=== PATIENT | female | born 1980 | race Caucasian/White ===

== ENCOUNTER 2016-11-20 18:53 | Emergency (ER) | END 2016-11-20 19:17 | disposition left against medical advice (07) | DX: Z53.21 Procedure and treatment not carried out due to patient leaving prior to being seen by health care provider (principal) ==

== ENCOUNTER 2016-11-20 19:29 | Inpatient (IN) | payer MEDICAID ==
[~2016-11-20] VITALS: Ht 154.9 cm; Wt 79.7 kg
[2016-11-20 19:48] VITALS: Ht 154.9 cm; Wt 79.7 kg
[2016-11-20 19:49] VITALS: BP 149/86; PULSE 50; RESP 18
[2016-11-20] MEDS ORDERED: PREN1TAB62 PO (19:51)
[2016-11-20] MEDS ORDERED: CALC600T5 PO (19:51)
--- NOTE | 2016-11-20 21:20 | RADRPT ---
PROCEDURE: US OB. CLINICAL INDICATION: Elevated blood pressure. TECHNIQUE: Multiple transabdominal sonographic images of the pelvis were obtained. COMPARISON: Biophysical profile 11/20/2016. FINDINGS: There is a single live intrauterine in cephalic presentation with heart motion of 13 5 beats per minute. Amniotic fluid amount appears normal. The placenta is posteriorly located. Measurements were made in order to determine age. The results are as follows: BPD = 8.04 cm, 32 weeks 2 days HC = 28.46 cm, 31 weeks 2 days AC = 27.87 cm, 31 weeks 6 days FL = 6.05 cm, 31 weeks 3 days EFW: 1830 g, 4 pounds 1 ounce. Percentile by ultrasound: Less than 3. IMPRESSION: Single live intrauterine measuring 31 weeks 5 days using current ultrasound measurements w ith an estimated date of delivery of 01/17/2017. RPTAT: HLST .Suzy Carpenter MD, Date Time Electronically viewed and signed by .Suzy Carpenter MD, on 11/20/2016 21:19 .T/
--- NOTE | 2016-11-20 21:21 | RADRPT ---
PROCEDURE: OB ultrasound for Biophysical Profile. CLINICAL INDICATION: High blood pressure. TECHNIQUE: Multiple sonographic images of the gravid uterus were obtained. COMPARISON: OB ultrasound 11/20/2016. FINDINGS: There is a single live intrauterine in cephalic presentation with heart motion of 13 5 beats per minute. NEHA is 10.41 cm, which is within normal limits. Biophysical profile is as foll ows: Movement: 2 Tone:2 Breathin Fluid:2 IMPRESSION: Normal biophysical profile. RPTAT: HLST .Suzy Carpenter MD, MD Date Time Electronically viewed and signed by .Suzy Carpenter MD, on 11/20/2016 21:20 .T/
[2016-11-20] MEDS: LACTATED RINGER'S 1,000 ML IV SCH (21:24)
[2016-11-20 21:25] LABS: BASOPHILS % 0.5 % (0.0-2.0); EOSINOPHILS # 0.1 10^3/ul (0.0-0.5); EOSINOPHILS % 1.2 % (0.0-7.0); HEMATOCRIT 34.6 % (37.0-47.0); HEMOGLOBIN 11.7 g/dl (12.0-16.0); LYMPHOCYTES # 2.6 10^3/ul (0.8-2.9); LYMPHOCYTES % 31.1 % (15.0-51.0); MEAN CORPUSCULAR HEMOGLOBIN 28.7 pg (29.0-33.0); MEAN CORPUSCULAR HGB CONC 33.8 g/dl (32.0-37.0); MEAN CORPUSCULAR VOLUME 84.8 fl (82.0-101.0); MONOCYTE # 0.5 10^3/ul (0.3-0.9); MONOCYTES % 5.7 % (0.0-11.0); NEUTROPHIL # 5.1 10^3/ul (1.6-7.5); NEUTROPHILS % 61.5 % (39.0-77.0); PLATELET COUNT 145 10^3/UL (140-440); RED BLOOD COUNT 4.08 10^6/ul (4.20-5.40); RED CELL DISTRIBUTION WIDTH 15.3 % (11.5-14.5); UNCORRECTED WBC 8.3 10^3/ul (4.8-10.8); WHITE BLOOD COUNT 8.3 10^3/ul (4.8-10.8)
[2016-11-20 21:27] LABS: CONDITION 1; LH ANALYZER COMMENTS 1
[2016-11-20 21:27] LABS: ADD UMIC YES; URINE BILIRUBIN (Dip) NEGATIVE (NEGATIVE); URINE BLOOD (Dip) TRACE (NEGATIVE); URINE COLOR LT. YELLOW (YELLOW); URINE GLUCOSE (Dip) NEGATIVE (NEGATIVE); URINE KETONES (Dip) NEGATIVE (NEGATIVE); URINE LEUKOCYTE ESTERASE (Dip) NEGATIVE (NEGATIVE); URINE NITRITE (Dip) NEGATIVE (NEGATIVE); URINE TOTAL PROTEIN (Dip) 1+ (NEGATIVE); URINE UROBILINOGEN (Dip) 0.2 E.U./dL (0.1-1.0)
[2016-11-20 21:34] LABS: ALBUMIN 3.4 g/dl (3.3-4.9); POTASSIUM 4.1 mmol/L (3.5-5.1)
[2016-11-20 21:36] LABS: ALBUMIN/GLOBULIN RATIO 0.87; CREATININE 0.54 mg/dl (0.44-1.00); TOTAL PROTEIN 7.3 g/dl (6.1-8.1)
[2016-11-20 21:37] LABS: CALCIUM 9.3 mg/dl (8.4-10.2); URIC ACID 6.2 mg/dl (3.1-7.9)
[2016-11-20 21:41] LABS: BACTERIA,URINE FEW; SQUAMOUS EPITHELIAL CELL,UR FEW; URINE RBCS 0-2 /HPF (0)
--- NOTE | 2016-11-20 22:10 | HP ---
Date/Time of Note Date/Time of Note DATE: 11/20/16 TIME: 22:04 OB - History Hx of Present Chief Complaint: Shortness of breath Estimated Due Date: Dec 30, 2016 : 5 Para: 3 Spontaneous : 1 Therapeutic : 0 Care: Other ( records not available) Obstetrical Complications: None Medical Complications: None Past Family/Social History * Past Medical, Surgical, Family and Obstetric Histories reviewed from chart. OB Admission Exam Vital Signs Vital Signs Vital Signs Date Time Temp Pulse Resp B/P Pulse Ox O2 Delivery O2 Flow Rate FiO2 11/20/16 19:49 98.7 50 18 149/86 99 Room Air Physical Exam HEENT: WNL Heart: Rhythm Normal Lungs: Clear Abdomen: WNL Extremities: Normal Reflexes: Normal Last 72 hours Lab Results CBC & BMP 11/20/16 20:50 Liver Function Test 11/20/16 20:50 Alanine Aminotransferase (ALT/SGPT) 22 Albumin 3.4 Alkaline Phosphatase 220 H Aspartate Amino Transf (AST/SGOT) 21 Direct Bilirubin 0.00 Total Protein 7.3 OB Assessment/Plan Reason for admission: IUP - , other (R/O preeclampsia) Plan: Other (Admit, PIH panel, 24 hour urine collection) LOLLY SOTO MD Nov 20, 2016 22:10
--- NOTE | 2016-11-20 22:34 | TRIAGE ---
OB Triage Datetime Report Generated by CPN: 11/20/2016 22:33 Datetime: 11/20/2016 22:11 Labor Evaluation Frequency: 0 Monitor Mode: External Duration (sec)2399: 0 Pattern: Normal: <= 5 Contractions in 10 Minutes Resting Tone [place]: Relaxed Heart Rate FHR Baseline Rate: 140 Monitor Mode: External US Variability: Moderate 6-25 bpm Accelerations: None Decelerations: None Category: Category I Datetime: 11/20/2016 21:30 Comments: audible FHR between 88-90bpm lasting 3.5 minutes with a return to baseline at 134bpm. Datetime: 11/20/2016 21:00 Labor Evaluation Frequency: 0 Monitor Mode: External Duration (sec)2399: 0 Pattern: Normal: <= 5 Contractions in 10 Minutes Resting Tone [place]: Relaxed Contraction Comments: pt. denies feeling UC's or cramping. Heart Rate FHR Baseline Rate: 130 Monitor Mode: External US Variability: Moderate 6-25 bpm Accelerations: 15X15 Decelerations: None Category: Category I Datetime: 11/20/2016 20:10 Stage of : OB Triage Datetime: 11/20/2016 20:01 Stage of : OB Triage Labor Evaluation Frequency: 0 Monitor Mode: External Duration (sec)2399: 0 Pattern: Normal: <= 5 Contractions in 10 Minutes Resting Tone [place]: Relaxed Contraction Comments: pt. denies feeling UC's or cramping Heart Rate FHR Baseline Rate: 130 Monitor Mode: External US Variability: Moderate 6-25 bpm Accelerations: 15X15 Decelerations: None Category: Category I Pain Assessment Pain Scale: 8 Pain Presence: Constant Pain Type: Ache Pain Location: Back Pain Goal: 4 Pain Relief Measures: Comfort Measures Datetime: 11/20/2016 19:53 Vaginal Exam Membrane Status: Intact Datetime: 11/20/2016 19:47 Stage of : OB Triage Datetime: 11/20/2016 19:46 Stage of : OB Triage Assessment Type: Triage Maternal Assessment Level of Consciousness: Fully Conscious DTR's/Clonus: DTRs 2+; No Clonus Headache: Generalized Blurred Vision: No Respiratory Effort: Unlabored Nausea/Vomiting: Denies RUQ Epigastric Pain: Denies Lower Extremities Edema: None Degree: None Upper Extremities Edema: None Degree: None Facial Edema: None Fall Risk Assessment History of Falling: (0) No Secondary Diagnosis: (0) No Ambulatory Aid: (0) Bedrest/Nurse Assist IV Therapy: (0) No Gait: (0) Normal/Bedrest/Immobile Mental Status: (0) Oriented to Own Ability Fall Score: 0 Fall Risk Score Definition: No Risk: No action required Datetime: 11/20/2016 19:45 EGA: 34.2 Datetime: 11/20/2016 19:43 Time of Arrival: 11/20/2016 19:26 Arrived By: Wheelchair Arrived From: Emergency Dept Chief Complaint: upper baack pain, SOB, tachycardia Movement: Present Contractions: Denies/Absent Rupture of Membranes: Denies Vaginal Bleeding: None Vaginal Discharge: Denies Recent Sexual Intercouse: Denies Abdominal Trauma: Not Applicable Patient Complaints: Back Pain Time Provider Notified: 11/20/2016 20:10 Provider Notified: Jamar (Annotations: Data stored by CPN on behalf of user) Initial Plan: NST, CMP, CBC, URIC ACID, 24 hour urine, EFW, BPP Datetime: 11/20/2016 19:40 Stage of : OB Triage
[2016-11-20] MEDS: BETAMET NA PHOS/AC(6 MG/ML) 5ML INJ IM SCH (22:46)
[2016-11-21] MEDS ORDERED: MAGNESIUM SULFATE 4 GM/100 ML 100 ML IV ONE (01:00)
[2016-11-21] MEDS: MAGNESIUM SULFATE 20 GM/500 ML 500 ML IV SCH ×2 (01:52→13:33)
[2016-11-21] MEDS: LACTATED RINGER'S 1,000 ML IV SCH ×6 (06:09→22:22)
--- NOTE | 2016-11-21 20:21 | PN ---
Date/Time of Note Date/Time of Note DATE: 11/21/16 TIME: 20:18 OB Subjective Subjective Subjective no C/O headache, blurred vision, or epigastric pain OB Objective Objective Objective VSS P/E: NL on EFM FHTs R minimal D/C seen OB Assessment/Plan Other Assessment: doubt PIH 34+ weeks gestation Other plan: continue to observe D/C magnesiun sulfate JORGE LUIS GO MD Nov 21, 2016 20:21
[2016-11-21] MEDS: BETAMET NA PHOS/AC(6 MG/ML) 5ML INJ IM SCH (22:46)
[2016-11-22] MEDS: LACTATED RINGER'S 1,000 ML IV SCH ×6 (04:30→18:12)
[2016-11-22] MEDS ORDERED: OXYTOCIN 30 UNITS/LR 500 ML BAG IV ONE (07:00)
[2016-11-22] MEDS ORDERED: LACTATED RINGER'S 1,000 ML IV SCH (12:33)
--- NOTE | 2016-11-22 12:57 | CONS ---
DATE OF ADMISSION: 11/20/2016 DATE OF CONSULTATION: I spoke to Dr. Roldan, and Dr. Roldan mentioned his concern about the strip on patient mentioned abo ve. At my office I am able to look at the patient's strip, and overall the patient has been having mostly minimal variability and frequent spontaneous deceleration. She is currently 34 weeks and 4 d ays, and given the minimal variability and frequent spontaneous decelerations, delivery is recommend ed. Dictated By: KIKO MELARA/KYLEIGH Conf#: [id number] DID#: [id number]
[2016-11-22] MEDS ORDERED: CEFAZOLIN 2 GM/50 ML (PMX) 50 ML IV SCH ×2 (13:00→18:30)
[2016-11-22] MEDS ORDERED: OXYTOCIN 30 UNITS/LR 500 ML IV PRN ×2 (13:00→18:30)
[2016-11-22] MEDS ORDERED: CARBOPROST 250 MCG INJ IM PRN ×2 (13:00→18:30)
[2016-11-22] MEDS ORDERED: METHYLERGONOVINE 0.2 MG INJ IM PRN ×2 (13:00→18:30)
[2016-11-22] MEDS ORDERED: MISOPROSTOL 200 MCG TAB PR PRN ×2 (13:00→18:30)
[2016-11-22] MEDS ORDERED: OXYTOCIN 30 UNITS/LR 500 ML IV SCH (13:00)
[2016-11-22] MEDS ORDERED: ONDANSETRON 4 MG INJ IV STA (13:48)
[2016-11-22 13:53] LABS: HEMATOCRIT 36.4 % (37.0-47.0); LYMPHOCYTES # 1.6 10^3/ul (0.8-2.9); LYMPHOCYTES % 14.6 % (15.0-51.0); MONOCYTE # 0.6 10^3/ul (0.3-0.9); MONOCYTES % 5.5 % (0.0-11.0)
[2016-11-22 13:58] LABS: BASOPHILS % 0.2 % (0.0-2.0); HEMOGLOBIN 12.1 g/dl (12.0-16.0); MEAN CORPUSCULAR HEMOGLOBIN 28.5 pg (29.0-33.0); MEAN CORPUSCULAR HGB CONC 33.4 g/dl (32.0-37.0); MEAN CORPUSCULAR VOLUME 85.3 fl (82.0-101.0); MEAN PLATELET VOLUME 10.5 fl (7.4-10.4); NEUTROPHIL # 8.6 10^3/ul (1.6-7.5); NEUTROPHILS % 79.7 % (39.0-77.0); PLATELET COUNT 171 10^3/UL (140-440); RED BLOOD COUNT 4.27 10^6/ul (4.20-5.40); RED CELL DISTRIBUTION WIDTH 16.6 % (11.5-14.5); UNCORRECTED WBC 10.8 10^3/ul (4.8-10.8); WHITE BLOOD COUNT 10.8 10^3/ul (4.8-10.8)
[2016-11-22 13:59] LABS: CONDITION 1; LH ANALYZER COMMENTS 1
[2016-11-22] MEDS ORDERED: FAMOTIDINE 20 MG INJ IV ONE (14:00)
[2016-11-22] MEDS ORDERED: CITRIC ACID/NA CITRATE 30 ML CUP PO ONE (14:00)
[2016-11-22] MEDS ORDERED: METOCLOPRAMIDE 10 MG INJ IV ONE (14:00)
[2016-11-22 14:03] LABS: INR 0.87; PARTIAL THROMBOPLASTIN TIME 27.8 Sec (25.0-35.0); PROTIME 11.8 Sec (12.2-14.2); PT RATIO 0.9
[2016-11-22] MEDS ORDERED: morphine SULFATE/PF (10 MG/10 ML) INJ ONE (14:51)
[2016-11-22] MEDS ORDERED: FENTAnyl 50 MCG/ML VIAL ONE (14:51)
[2016-11-22] MEDS ORDERED: PHENYLephrine (100 MCG/ML) 5ML SYG ONE (14:51)
[2016-11-22] MEDS ORDERED: EPHEDrine SULFATE 50 MG/5 ML SYG ONE (14:51)
[2016-11-22] MEDS ORDERED: DIPHENHYDRAMINE 50 MG INJ ONE (15:20)
[2016-11-22] MEDS ORDERED: ONDANSETRON 4 MG INJ IV PRN (16:00)
[2016-11-22] MEDS ORDERED: ZOLPIDEM 5 MG TAB PO PRN (16:00)
[2016-11-22] MEDS ORDERED: DIPHENHYDRAMINE 50 MG INJ IV PRN (16:00)
[2016-11-22] MEDS ORDERED: HYDROmorphONE 1 MG/ML SYG IV PRN ×2 (16:00)
[2016-11-22] MEDS ORDERED: NALOXONE (0.4 MG/ML) INJ IV PRN (16:00)
[2016-11-22] MEDS: KETOROLAC 30 MG INJ IV PRN (16:50)
[2016-11-22 17:12] LABS: BASOPHILS % 0.3 % (0.0-2.0); HEMATOCRIT 34.1 % (37.0-47.0); HEMOGLOBIN 11.5 g/dl (12.0-16.0); LYMPHOCYTES # 1.3 10^3/ul (0.8-2.9); LYMPHOCYTES % 16.1 % (15.0-51.0); MEAN CORPUSCULAR HEMOGLOBIN 28.9 pg (29.0-33.0); MEAN CORPUSCULAR HGB CONC 33.8 g/dl (32.0-37.0); MEAN CORPUSCULAR VOLUME 85.6 fl (82.0-101.0); MEAN PLATELET VOLUME 10.4 fl (7.4-10.4); MONOCYTE # 0.3 10^3/ul (0.3-0.9); MONOCYTES % 3.1 % (0.0-11.0); NEUTROPHIL # 6.7 10^3/ul (1.6-7.5); NEUTROPHILS % 80.5 % (39.0-77.0); PLATELET COUNT 163 10^3/UL (140-440); RED BLOOD COUNT 3.98 10^6/ul (4.20-5.40); RED CELL DISTRIBUTION WIDTH 15.3 % (11.5-14.5); UNCORRECTED WBC 8.4 10^3/ul (4.8-10.8); WHITE BLOOD COUNT 8.4 10^3/ul (4.8-10.8)
[2016-11-22 17:16] LABS: CONDITION 1; LH ANALYZER COMMENTS 1
[2016-11-22 17:22] LABS: ADD UMIC NO; URINE BILIRUBIN (Dip) NEGATIVE (NEGATIVE); URINE BLOOD (Dip) NEGATIVE (NEGATIVE); URINE COLOR LT. YELLOW (YELLOW); URINE GLUCOSE (Dip) NEGATIVE (NEGATIVE); URINE KETONES (Dip) NEGATIVE (NEGATIVE); URINE LEUKOCYTE ESTERASE (Dip) NEGATIVE (NEGATIVE); URINE NITRITE (Dip) NEGATIVE (NEGATIVE); URINE TOTAL PROTEIN (Dip) NEGATIVE (NEGATIVE); URINE UROBILINOGEN (Dip) 0.2 E.U./dL (0.1-1.0)
[2016-11-22 17:27] LABS: ALBUMIN 3.1 g/dl (3.3-4.9)
[2016-11-22 17:28] LABS: POTASSIUM 4.6 mmol/L (3.5-5.1)
[2016-11-22 17:30] LABS: CREATININE 0.6 mg/dl (0.44-1.00)
[2016-11-22 17:31] LABS: ALBUMIN/GLOBULIN RATIO 0.88; CALCIUM 7.8 mg/dl (8.4-10.2); TOTAL PROTEIN 6.6 g/dl (6.1-8.1)
[2016-11-22] MEDS ORDERED: MAGNESIUM SULFATE 4 GM/100 ML 100 ML ONE (17:54)
--- NOTE | 2016-11-22 18:10 | OPR ---
Operative Report Planned Procedure Procedure date Nov 22, 2016 Procedure(s) primary C/S Performed by: JORGE LUIS GO MD Assisting provider: DALTON LOO MD Anesthesiologist: KAPIL REYNA DO Pre-procedure diagnosis 34 + weeks gestation persistent category 2 -3 FHTs ?IUGR Anesthesia Type: spinal Procedure Description Under satisfactory anaesthesia a Pfannenstiel incision was made two fingerbreadth above and parallel to the symphysis of pubis. Incision was extended laterally to the border of the Recti muscles on either sides. Incision was carried down with sharp and blunt dissection until fascia was reached. Anterior Recti muscle fascia was incised in mid portion and incision extended laterally to the border of skin incision. Fascia was mobilized from muscle superiorly and Recti muscles were from midline using sharp and blunt dissection. Peritoneum was visualized; Avoiding bowel and bladder it was incised . Incision was extended superiorly and inferiorly. Bladder blade was placed. Posterior peritoneum covering the lower segment of the uterus and lower segment of the uterus were incised. Incision was extended laterally to the border of Round Lig. on either sides and baby was delivered from OP. position . Amniotic fluid appeared clear. Cord blood was obtained and cord had 3 vessels . Placenta was delivered spontaneously and appeared intact and complete. Intrauterine cavity was rubbed with a laparotomy sponge. Uterine incision was closed in 2 layers using running stitches of No1 Monocryl. Hemostasis appeared secure. Ovaries and Fallopian tubes were within normal limits. Announcing needle, lap sponge and instrument count to be correct abdomen was closed in layers as follows: Peritoneum and Recti muscles with running stitches of 20 Vicryl. Fascia with running stitch of No 1 PDS. Subcutaneous tissue with running stitches of 20 Chromic and skin was closed using hanane. Patient tolerated the procedure well and was transferred to [facility] in good condition. Post-Procedure Post-procedure diagnosis S/P C/S Findings: Live Baby Specimen removed: Yes Specimen description placenta Complications: None Pt Condition post procedure: stable Disposition: PACU Physician Certification I, the undersigned physician, hereby certify that I have discussed the procedure described in this consent form with this patient (or the patient's legal novelties sales representative), including: * The risk and benefits of the procedure; * Any adverse reactions that may reasonably be expected to occur; * Any alternative efficacious methods of treatment which may be medically viable ; * The potential problems that may occur during recuperation; * Potential for blood transfusion and associated risks/benefits; and * Any research or economic interest I may have regarding this treatment. I further certify that the patient/legally responsible person was encouraged to ask question and that all questions were answered. JORGE LUIS GO MD Nov 22, 2016 18:10
[2016-11-22] MEDS ORDERED: MAGNESIUM SULFATE 4 GM/100 ML IVPB ONE ×2 (18:30)
[2016-11-22] MEDS ORDERED: SOD CHLORIDE 0.9% IVPB SCH (18:30)
[2016-11-22] MEDS ORDERED: NA PHOSPHATE/BIPHOS 133 ML ENEMA PR PRN (18:30)
[2016-11-22] MEDS ORDERED: MAGNESIUM SULFATE IVPB SCH (18:30)
[2016-11-22] MEDS: CLINDAMYCIN 300 MG CAP PO SCH (18:30)
[2016-11-22] MEDS ORDERED: ACETAMINOPHEN/CODEINE #3 TAB PO PRN (18:30)
[2016-11-22] MEDS ORDERED: LANOLIN 7 GM TUBE TOP PRN (18:30)
[2016-11-22] MEDS ORDERED: VANCOMYCIN 1 GM (PMX) 250 ML IVPB SCH (18:30)
[2016-11-22] MEDS ORDERED: MAGNESIUM SULFATE 20 GM/500 ML 500 ML IV SCH (18:30)
[2016-11-22 20:40] VITALS: BP 171/81; PULSE 56; RESP 16
[2016-11-22 21:00] VITALS: BP 153/83; PULSE 50; RESP 16
[2016-11-22 22:00] VITALS: BP 150/70; PULSE 66; RESP 20
[2016-11-22 23:00] VITALS: BP 159/77; PULSE 59; RESP 18
[2016-11-22] MEDS: SENNA/DOCUSATE NA (8.6MG/50MG) TAB PO SCH (23:03)
[2016-11-22] MEDS: CEFAZOLIN 2 GM/50 ML (PMX) 50 ML IVPB SCH (23:03)
[2016-11-23] VITALS (18 sets, daily range): BP systolic 104–158; BP diastolic 55–77; PULSE 54–78; RESP 16–20
[2016-11-23] MEDS: CLINDAMYCIN 300 MG CAP PO SCH ×5 (00:37→23:45)
[2016-11-23] MEDS: LACTATED RINGER'S 1,000 ML IV SCH ×2 (01:47→12:03)
[2016-11-23] MEDS: KETOROLAC 30 MG INJ IV PRN (04:50)
[2016-11-23] MEDS: CEFAZOLIN 2 GM/50 ML (PMX) 50 ML IVPB SCH ×2 (06:46→14:00)
[2016-11-23 07:45] LABS: BASOPHILS % 0.3 % (0.0-2.0); HEMOGLOBIN 10.5 g/dl (12.0-16.0); LYMPHOCYTES # 1.7 10^3/ul (0.8-2.9); LYMPHOCYTES % 16.1 % (15.0-51.0); MEAN CORPUSCULAR HEMOGLOBIN 29.3 pg (29.0-33.0); MEAN CORPUSCULAR VOLUME 86.1 fl (82.0-101.0); MEAN PLATELET VOLUME 10.7 fl (7.4-10.4); MONOCYTE # 0.6 10^3/ul (0.3-0.9); NEUTROPHIL # 8.3 10^3/ul (1.6-7.5); NEUTROPHILS % 77.6 % (39.0-77.0); PLATELET COUNT 131 10^3/UL (140-440); RED CELL DISTRIBUTION WIDTH 15.5 % (11.5-14.5); UNCORRECTED WBC 10.8 10^3/ul (4.8-10.8); WHITE BLOOD COUNT 10.8 10^3/ul (4.8-10.8)
[2016-11-23 07:58] LABS: CONDITION 1; LH ANALYZER COMMENTS 1
[2016-11-23] MEDS: SENNA/DOCUSATE NA (8.6MG/50MG) TAB PO SCH ×2 (09:08→21:02)
[2016-11-23] MEDS ORDERED: BISACODYL 10 MG SUPP PR ONE (10:00)
[2016-11-23] MEDS: IBUPROFEN 800 MG TAB PO SCH ×2 (13:59→21:56)
[2016-11-23] MEDS: OXYCODONE/ACETAMINOPHEN (5/325) TAB PO PRN (17:35)
--- NOTE | 2016-11-23 18:28 | PN ---
Date/Time of Note Date/Time of Note DATE: 11/23/16 TIME: 18:27 Assessment/Plan VTE Prophylaxis VTE Prophylaxis Intervention: ambulation Lines/Catheters IV [facility] (from [facility] Peripheral IV Assessment/Plan Assessment/Plan POD # 1 S/P C/S will advance diet and ambulate Subjective 24 Hr Interval Summary No major complaints passing flatus Exam/Review of Systems Vital Signs Vitals Vital Signs Date Time Temp Pulse Resp B/P Pulse Ox O2 Delivery O2 Flow Rate FiO2 11/23/16 14:15 70 130/66 11/23/16 12:50 98 21 11/23/16 12:15 98.2 Room Air 11/23/16 10:40 18 Intake and Output 11/22/16 11/22/16 11/23/16 15:00 23:00 07:00 Intake Total 700 ml 1005 ml 1350 ml Output Total 2550 ml 1600 ml 1800 ml Balance -1850 ml -595 ml -450 ml Exam Free Text/Dictation vss P/E N: Abdomen: soft BS + incision: covered Results Result Diagram: 11/23/16 0625 11/22/16 1702 JORGE LUIS GO MD Nov 23, 2016 18:28
[2016-11-24 04:10] VITALS: BP 131/71; PULSE 56; RESP 18
[2016-11-24] MEDS: OXYCODONE/ACETAMINOPHEN (5/325) TAB PO PRN ×2 (05:14→13:07)
[2016-11-24] MEDS: CLINDAMYCIN 300 MG CAP PO SCH ×3 (05:31→17:56)
[2016-11-24] MEDS: IBUPROFEN 800 MG TAB PO SCH ×3 (05:31→21:24)
[2016-11-24 07:45] VITALS: BP 115/64; PULSE 71; RESP 19
[2016-11-24] MEDS: SENNA/DOCUSATE NA (8.6MG/50MG) TAB PO SCH ×2 (09:33→21:00)
--- NOTE | 2016-11-24 15:27 | DS ---
Date/Time of Note Date/Time of Note home next day DATE: 11/24/16 TIME: 15:25 Obstetrical Discharge Record Final Diagnosis Final Diagnosis: delivered Other Final Diagnosis S/P C/S Section Section: Primary (category 3 FHTs , perinatolgy request ) Complications Preg induced Hypertension (possible), Other (poor growth ) Condition on Discharge Physical Assessment Last Vitals: see nurses notes Voiding: Yes Bowel Movement: Yes Breast: Soft, non-tender, Filling Fundus: Firm Abdomen and Incision: soft BS + Incision: healing well Episiotomy: NA Calf Tenderness: No Patient Condition: Good JORGE LUIS GO MD Nov 24, 2016 15:27
--- NOTE | 2016-11-24 15:28 | DS ---
Date/Time of Note Date/Time of Note DATE: 11/24/16 TIME: 15:27 Discharge Summary Admission/Discharge Info Admit Date/Time Nov 20, 2016 at 22:00 Discharge Date/Time 11/25/2016 Final Diagnosis S/P C/S Patient Condition: Good Procedures primary C/S Hx of Present Illness 36 y/o female had primary C/S Hospital Course uncomplicated Home Meds Reported Medications Calcium Carbonate (CALCIUM) 600 Mg Tablet, 600 MG PO, TAB 11/20/16 Vit-Iron Fumarate-FA ( Vitamin Tablet) 1 Each Tablet, 1 TAB PO DAILY, TAB 11/20/16 Follow-up Plan 2-3 days in clinic for staple removal Pending Labs Laboratory Tests Test 11/24/16 12:17 Lab Scanned Report REFERENCE [id number] JORGE LUIS GO MD Nov 24, 2016 15:28
--- NOTE | 2016-11-24 15:30 | PD.PPDC ---
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
[2016-11-24] MEDS ORDERED: IBUP800T25 PO (15:32)
[2016-11-24] MEDS ORDERED: Oxycodone/Acetamin (5/325) PO (15:32)
[2016-11-24 16:40] VITALS: BP 134/84; PULSE 61; RESP 18
[2016-11-24] MEDS ORDERED: INFLUENZA VIRUS VACCINE 0.5 ML SYG IM* ONE (17:00)
[2016-11-24 20:10] VITALS: BP 115/63; PULSE 67; RESP 18
[2016-11-25] MEDS: CLINDAMYCIN 300 MG CAP PO SCH ×3 (00:32→12:00)
[2016-11-25 03:30] VITALS: BP 140/80; PULSE 61; RESP 18
[2016-11-25] MEDS: IBUPROFEN 800 MG TAB PO SCH (05:53)
[2016-11-25 08:00] VITALS: BP 134/86; PULSE 17; RESP 17
[2016-11-25] MEDS ORDERED: MEASLES,MUMPS,RUBELLA VACCINE INJ SC* ONE (09:00)
[2016-11-25] MEDS ORDERED: DIPHTH/TET/ACEL PERTUSS (ADULT) 0.5 ML VIAL IM* ONE (09:00)
[2016-11-25] MEDS: SENNA/DOCUSATE NA (8.6MG/50MG) TAB PO SCH (09:11)
[2016-11-25] MEDS: OXYCODONE/ACETAMINOPHEN (5/325) TAB PO PRN (11:45)
[2016-11-26] MEDS ORDERED: INFLUENZA VIRUS VACCINE 0.5 ML SYG IM* ONE (09:00)
== END 2016-11-25 12:45 | disposition home or self-care (01) | DRG 765 ==
LOC: OBT 19:29 → L-D 19:29 → OBT 22:00 → OBG 11-21 09:29 → L-D 11-22 12:56 → PP1 11-22 20:38
PROVIDERS: ADMIT Obstetrics & Gynecology; ATTEND Obstetrics & Gynecology
PROC: 10D00Z1 Extraction of Products of Conception, Low, Open Approach (ICD-10-PCS; principal; 2016-11-22 15:15)
DX: O76 Abnormality in fetal heart rate and rhythm complicating labor and delivery (principal); O60.14X0 Preterm labor third trimester with preterm delivery third trimester, not applicable or unspecified; O36.5930 Maternal care for other known or suspected poor fetal growth, third trimester, not applicable or unspecified; Z37.0 Single live birth; O09.523 Supervision of elderly multigravida, third trimester; Z3A.34 34 weeks gestation of pregnancy
CPT/HCPCS: 36415; 76815; 76818; 80053; 81001; 81003; 83735; 84560; 85025; 85610; 85730; 86592; 86850; 86900; 86901; 87086; 88307; 90686; 90715; 94760; 96360; 99464; G0463; J0690; J0702; J1170; J1200; J1885; J2274; J2370; J2405; J2590; J2765; J3010; J3370; J3475; J7120

== ENCOUNTER 2019-01-12 13:24 | Emergency (ER) | payer MEDICAID ==
[~2019-01-12] VITALS: Ht 167.6 cm; Wt 70.7 kg
[~2019-01-12 13:24] MED LIST: CALC600T5 PO; IBUP-1544 PO; Oxycodone/Acetamin (5/325) PO; PREN1TAB62 PO
[2019-01-12 14:03] VITALS: BP 121/61; PULSE 78; RESP 20; Ht 167.6 cm; Wt 70.7 kg
[2019-01-12] MEDS ORDERED: ACET500C5 PO (16:31)
[2019-01-12] MEDS ORDERED: CEPH-443 PO (16:31)
--- NOTE | 2019-01-12 18:06 | ERD ---
ER Documentation Chief Complaint Chief Complaint Complains of a vag bleed and 9 weeks HPI 38-year-old female patient with no significant past medical history presents to the ED, currently is a presents to the ED complaining of vaginal bleeding and her . Reports that she has some lower abdominal cramping. Reports that her HEAVY TRUCK MECHANIC is Dr. Muñoz. Denies any nausea, vomiting, headache, chest pain, shortness of breath, abdominal pain. ROS All systems reviewed and are negative except as per history of present illness. Medications Home Meds Active Scripts Acetaminophen* (Tylophen*) 500 Mg Capsule, 1 CAP PO Q6H PRN for PAIN AND OR ELEVATED TEMP, #20 CAP Prov:SALINA PEREZ PA-C 01/12/19 Cephalexin* (Keflex*) 500 Mg Capsule, 500 MG PO QID for 7 Days, CAP Prov:SALINA PEREZ PA-C 01/12/19 [Oxycodone/Acetamin (5/325)] 1 TAB TAB No Conflict Check, 2 TAB PO Q4H PRN for PAIN LEVEL 6-10, #30 0 Refills Prov:JORGE LUIS GO MD 11/24/16 Ibuprofen* (Ibuprofen*) 800 Mg Tablet, 800 MG PO Q8, #20 TAB 0 Refills Prov:JORGE LUIS GO MD 11/24/16 Reported Medications Calcium Carbonate (CALCIUM) 600 Mg Tablet, 600 MG PO, TAB 11/20/16 Vit-Iron Fumarate-FA ( Vitamin Tablet) 1 Each Tablet, 1 TAB PO DAILY, TAB 11/20/16 Allergies Allergies: Coded Allergies: No Known Allergy (Verified , 10/08/08) PMhx/Soc Medical and Surgical Hx: pt denies Medical Hx, pt denies Surgical Hx Hx Alcohol Use: No Hx Substance Use: No Hx Tobacco Use: No Smoking Status: Never smoker FmHx Family History: No diabetes, No coronary disease Physical Exam Vitals Vital Signs Date Temp Pulse Resp B/P (MAP) Pulse Ox O2 O2 Flow FiO2 Time Delivery Rate 01/12/19 98.9 78 20 121/61 99 14:03 (81) Physical Exam Const: Pqo-[id number], well-nourished. In no acute distress. Head: Atraumatic, normocephalic Eyes: Normal Conjunctiva without injection. No purulent discharge. ENT: Normal external ear, nose. Moist oropharynx without tonsillar exudates. Non-erythematous pharynx. Uvula midline. No drooling. No trismus. Neck: No cervical midline tenderness. Full range of motion. No meningismus. No cervical lymphadenopathy. No JVD. Resp: Clear to auscultation bilaterally. No wheezing, rhonchi, rales, or crackles. No accessory muscle use. No retractions. Cardio: Regular rate and rhythm. No murmurs, rubs or gallops. Abd: Soft, nontender, non distended. Normal bowel sounds. No palpable masses. No rebound tenderness. No guarding. Negative McBurney's point. Negative psoas sign. Negative obturator sign. Skin: No petechiae or rashes Back: No midline tenderness. No CVA tenderness. Ext: No cyanosis, or edema. Neur: Awake and alert. Normal gait. Normal coordination. Psych: Normal Mood and Affect Results 24 hrs Laboratory Tests Test 01/12/19 15:15 White Blood Count 4.0 10^3/ul Red Blood Count 4.58 10^6/ul Hemoglobin 12.9 g/dl Hematocrit 38.7 % Mean Corpuscular Volume 84.5 fl Mean Corpuscular Hemoglobin 28.2 pg Mean Corpuscular Hemoglobin Concent 33.3 g/dl Red Cell Distribution Width 13.5 % Platelet Count 188 10^3/UL Mean Platelet Volume 10.9 fl Immature Granulocytes % 0.000 % Neutrophils % 42.8 % Lymphocytes % 48.3 % Monocytes % 7.7 % Eosinophils % 1.0 % Basophils % 0.2 % Nucleated Red Blood Cells % 0.0 /100WBC Immature Granulocytes # 0.000 10^3/ul Neutrophils # 1.7 10^3/ul Lymphocytes # 2.0 10^3/ul Monocytes # 0.3 10^3/ul Eosinophils # 0.0 10^3/ul Basophils # 0.0 10^3/ul Nucleated Red Blood Cells # 0.0 10^3/ul Urine Color STRAW Urine Clarity CLEAR Urine pH 6.0 Urine Specific [place] 1.005 Urine Ketones NEGATIVE mg/dL Urine Nitrite NEGATIVE mg/dL Urine Bilirubin NEGATIVE mg/dL Urine Urobilinogen NEGATIVE mg/dL Urine Leukocyte Esterase NEGATIVE Ellis/ul Urine Microscopic RBC 3 /HPF Urine Microscopic WBC 0 /HPF Urine Squamous Epithelial Cells FEW /HPF Urine Bacteria FEW /HPF Urine Hemoglobin 2+ mg/dL Urine Glucose NEGATIVE mg/dL Urine Total Protein NEGATIVE mg/dl Beta HCG, Quantitative 672.2 mIU/ml Procedures/MDM 38-year-old female patient with no significant past medical history, currently presents to ED complaining of vaginal bleeding. Patient is afebrile and nontoxic-appearing. An ultrasound, beta-hCG, CBC, type and RH, UA was ordered to evaluate patient. CBC: No evidence of severe infection or anemia Urine: No elevation in nitrites, leukocyte esterase, hematuria. Rh: O positive. No indication for Rhogam at this time. beta Hc.2 IMPRESSION: Possible early intrauterine at 5 weeks and 0 days. No pole or yolk sac is yet visualized. Close followup ultrasound and hCG is recommended. Patient's bleeding symptoms have stabilized while in the department. Patient has a possible IUP of 5 weeks however no pole or yolk sac noted. Patient was strictly instructed to follow-up with her HEAVY TRUCK MECHANIC for further evaluation and treatment. Few bacteria were noted on her urine, patient will be treated for urinary tract infection. Low suspicion for symptomatic anemia, ectopic , sepsis, PID, appendicitis, ovarian torsion, tubo-ovarian abscess, surgical abdomen, or other emergent conditions. Patient was educated that there is a risk for threatened . This patient with Dr. Villalba, who agreed with the management discharge plan and patient should also trend her white blood cell count. Patient to follow up with HEAVY TRUCK MECHANIC in 2 days for further evaluation and treatment for repeat beta Hcg and ultrasound. Patient is to return sooner to the ED for any worsening symptoms. Patient's questions were answered. Patient understood and agreed with discharge plan. Departure Diagnosis: Primary Impression: Vaginal bleeding in patient at less than 20 weeks ges... Condition: Stable Patient Instructions: Urinary Tract Infections in Women, Bleeding During Early Referrals: COMMUNITY CLINICS YOU HAVE RECEIVED A MEDICAL SCREENING EXAM AND THE RESULTS INDICATE THAT YOU DO NOT HAVE A CONDITION THAT REQUIRES URGENT TREATMENT IN THE EMERGENCY DEPARTMENT. FURTHER EVALUATION AND TREATMENT OF YOUR CONDITION CAN WAIT UNTIL YOU ARE SEEN IN YOUR DOCTORS OFFICE WITHIN THE NEXT 1-2 DAYS. IT IS YOUR RESPONSIBILITY TO MAKE AN APPOINTMENT FOR FOLOW-UP CARE. IF YOU HAVE A PRIMARY DOCTOR --you should call your primary doctor and schedule an appointment IF YOU DO NOT HAVE A PRIMARY DOCTOR YOU CAN CALL OUR PHYSICIAN REFERRAL HOTLINE AT IF YOU CAN NOT AFFORD TO SEE A PHYSICIAN YOU CAN CHOSE FROM THE FOLLOWING [facility] [address] [facility] [address] [facility] [address] [facility] [address] [facility] [address] [facility]. [facility] [address] [facility]. [facility] YOU HAVE RECEIVED A MEDICAL SCREENING EXAM AND THE RESULTS INDICATE THAT YOU DO NOT HAVE A CONDITION THAT REQUIRES URGENT TREATMENT IN THE EMERGENCY DEPARTMENT. FURTHER EVALUATION AND TREATMENT OF YOUR CONDITION CAN WAIT UNTIL YOU ARE SEEN IN YOUR DOCTORS OFFICE WITHIN THE NEXT 1-2 DAYS. IT IS YOUR RESPONSIBILITY TO MAKE AN APPOINTMENT FOR FOLOW-UP CARE. IF YOU HAVE A PRIMARY DOCTOR --you should call your primary doctor and schedule and appointment IF YOU DO NOT HAVE A PRIMARY DOCTOR YOU CAN CALL OUR PHYSICIAN REFERRAL HOTLINE AT . IF YOU CAN NOT AFFORD TO SEE A PHYSICIAN YOU CAN CHOSE FROM THE FOLLOWING [facility]: [facility] [address] [place] [address] [facility] [address] [place], [place] [id number] [place] [address] [address] [place] [address] [facility] URGENT CARE/SPECIALTIES Additional Instructions: Llame al doctor Dr. Jamar TUCKER y tere armando BRENDA PARA DENTRO DE 2-3 [place]ENE[place].Dgale a la secretaria que nosotros le instruimos hacer esta brenda.Avise o llame si wilder condicin se empeora antes de la brenda. Regresa aqui si peor o no mejor. SALINA PEREZ PA-C Jan 12, 2019 18:06
== END 2019-01-12 16:41 | disposition home or self-care (01) ==
LOC: FTE 13:24
DX: O20.9 Hemorrhage in early pregnancy, unspecified (principal); Z3A.01 Less than 8 weeks gestation of pregnancy
CPT/HCPCS: 36415; 76801; 81001; 84702; 85025; 86900; 86901

== ENCOUNTER 2019-01-15 17:47 | Emergency (ER) | payer SELFPAY ==
[~2019-01-15] VITALS: Ht 167.6 cm; Wt 71.1 kg
[~2019-01-15 17:47] MED LIST changes: +ACET500C5 PO; +CEPH-443 PO
[2019-01-15 18:14] VITALS: BP 119/59; PULSE 71; RESP 20; Ht 167.6 cm; Wt 71.1 kg
== END 2019-01-15 22:36 | disposition left against medical advice (07) ==
LOC: FTE 17:47
DX: Z53.21 Procedure and treatment not carried out due to patient leaving prior to being seen by health care provider (principal)